=== PATIENT | female | born 1985 | race Hispanic/Latino ===

== ENCOUNTER 2021-02-18 06:45 | Inpatient (IN) | payer MEDICAID ==
[~2021-02-18] VITALS: Ht 170.2 cm; Wt 106.1 kg
[2021-02-18 06:49] VITALS: BP 116/67
[2021-02-18] MEDS ORDERED: EPHEDRINE SULFATE 50 MG/ML AMPULE IVP PRN (08:00)
[2021-02-18] MEDS ORDERED: MEPERIDINE-PF 50 MG/ML SYG IVP PRN (08:00)
[2021-02-18] MEDS ORDERED: OXYTOCIN-LR 20 UNITS/1000 ML 1,000 ML IV SCH (08:00)
[2021-02-18] MEDS ORDERED: LACTATED RINGERS 1000ML 1,000 ML IV PRN (08:00)
[2021-02-18] MEDS ORDERED: ROPIVACAINE 0.2% 100ML VIAL 100 ML EP SCH (08:00)
[2021-02-18] MEDS ORDERED: PROMETHAZINE HCL 25 MG/ML 1ML AMPULE IM PRN (08:00)
[2021-02-18] MEDS ORDERED: LACTATED RINGERS 500 ML 500 ML IV PRN (08:00)
[2021-02-18] MEDS ORDERED: NALOXONE HCL 0.4 MG/1 ML ML IV PRN (08:00)
[2021-02-18 08:05] LABS: HEMATOCRIT 30.7 % (36-48); MEAN CORPUSCULAR HEMOGLOBIN 28.4 pg (27.0-33.0); MEAN CORPUSCULAR HGB CONC 33.6 g/dL (32.0-36.0); MEAN CORPUSCULAR VOLUME 84.6 fL (79-99); RED BLOOD CELL COUNT(AUTO) 3.63 MIL/uL (4.00-5.50); RED CELL DISTRIBUTION WIDTH 14.3 % (11.0-15.5)
[2021-02-18 08:07] LABS: APPEARANCE,URINE Clear (CLEAR); BILIRUBIN,URINE Negative (NEGATIVE); COLOR,URINE Yellow (YELLOW); GLUCOSE, URINE (UA) Negative (NEGATIVE); KETONES,URINE Trace mg/dL (NEGATIVE); LEUKOCYTE ESTERASE ,URINE Small (NEGATIVE); NITRATE,URINE Negative (NEGATIVE); OCCULT BLOOD,URINE Negative (NEGATIVE); PROTEIN,URINE Negative (NEGATIVE)
[2021-02-18 08:14] LABS: BACTERIA,URINE Rare /HPF (None Seen); RBC,URINE 0-1 /HPF (0-1); SQUAMOUS EPITHELIAL CELL,UR Moderate /HPF (0-2)
[2021-02-18] MEDS ORDERED: FENTANYL CITRATE PF 50 MCG/1 ML 2ML VIAL ONE (10:49)
[2021-02-18] MEDS ORDERED: LANOLIN 30GM OINTMENT TP PRN (14:00)
[2021-02-18] MEDS ORDERED: ACETAMINOPHEN 325 MG TAB PO PRN (14:00)
[2021-02-18] MEDS ORDERED: DIPH,PERTUSS(ACELL),TET VAC/PF 0.5 ML VIAL IM PRN (14:00)
[2021-02-18] MEDS ORDERED: BENZOCAINE/LANOLIN/ALOE VERA 60 ML AEROSOL TP PRN (14:00)
[2021-02-18] MEDS ORDERED: WITCH HAZEL 1 PAD TP PRN (14:00)
[2021-02-18] MEDS ORDERED: ACETAMINOPHEN WITH CODEINE 1 TAB TAB PO PRN (14:00)
[2021-02-18 15:45] VITALS: BP 124/72
[2021-02-18] MEDS: IBUPROFEN 600 MG TABLET PO PRN (16:08)
[2021-02-18] MEDS ORDERED: PNV1TABL17 PO (18:11)
[2021-02-18 19:43] VITALS: BP 111/58
[2021-02-18] MEDS: DOCUSATE SODIUM 100 MG CAP PO SCH (21:12)
[2021-02-18 22:56] VITALS: BP 115/69
[2021-02-19] MEDS: IBUPROFEN 600 MG TABLET PO PRN ×2 (02:13→09:18)
[2021-02-19 02:51] VITALS: BP 106/62
[2021-02-19 07:48] VITALS: BP 106/65
[2021-02-19] MEDS: DOCUSATE SODIUM 100 MG CAP PO SCH (09:17)
[2021-02-19 17:09] LABS: HEPATITIS Bs ANTIGEN SCREEN P Negative (Negative)
== END 2021-02-19 15:55 | disposition home or self-care (01) | DRG 560 ==
LOC: EDH 06:45 → OBSVTOIN 06:46 → LDH 06:46 → WSH 15:44
PROVIDERS: ADMIT Specialist; ATTEND Specialist
PROC: 10E0XZZ Delivery of Products of Conception, External Approach (ICD-10-PCS; principal; 2021-02-18)
PROC: 0KQM0ZZ Repair Perineum Muscle, Open Approach (ICD-10-PCS; 2021-02-18)
PROC: 3E0R3BZ Introduction of Anesthetic Agent into Spinal Canal, Percutaneous Approach (ICD-10-PCS; 2021-02-18)
PROC: 00HU33Z Insertion of Infusion Device into Spinal Canal, Percutaneous Approach (ICD-10-PCS; 2021-02-18)
DX: O70.1 Second degree perineal laceration during delivery (principal); Z37.0 Single live birth; Z3A.38 38 weeks gestation of pregnancy
CPT/HCPCS: 36415; 81001; 85027; 86592; 86850; 86900; 86901; 87340; A4314; G0378; J2590; J2795; J3010

== ENCOUNTER 2022-05-23 07:19 | Inpatient (IN) | payer MEDICAID ==
[~2022-05-23] VITALS: Ht 170.2 cm; Wt 104.8 kg
[~2022-05-23 07:19] MED LIST: PNV1TABL17 PO
[2022-05-23 08:28] LABS: HEMATOCRIT 31.3 % (36-48); MEAN CORPUSCULAR HEMOGLOBIN 27.4 pg (27.0-33.0); MEAN CORPUSCULAR HGB CONC 33.5 g/dL (32.0-36.0); MEAN CORPUSCULAR VOLUME 81.7 fL (79-99); RED BLOOD CELL COUNT(AUTO) 3.83 MIL/uL (4.00-5.50); RED CELL DISTRIBUTION WIDTH 15.7 % (11.0-15.5); WHITE BLOOD COUNT (AUTO) 8.4 K/uL (4.8-10.8)
[2022-05-23] MEDS ORDERED: EPHEDRINE SULFATE 50 MG/ML AMPULE IVP PRN (08:30)
[2022-05-23] MEDS ORDERED: NALOXONE HCL 0.4 MG/1 ML ML IV PRN (08:30)
[2022-05-23] MEDS ORDERED: ROPIVACAINE 0.2% 100ML VIAL 100 ML EP SCH (08:30)
[2022-05-23] MEDS ORDERED: PROMETHAZINE HCL 25 MG/ML 1ML AMPULE IM PRN (08:30)
[2022-05-23] MEDS ORDERED: LACTATED RINGERS 500 ML 500 ML IV PRN (08:30)
[2022-05-23] MEDS: LACTATED RINGERS 1000ML 1,000 ML IV PRN ×2 (08:35→09:10)
[2022-05-23 08:36] VITALS: BP 132/73
[2022-05-23] MEDS ORDERED: FENTANYL CITRATE PF 50 MCG/1 ML 2ML VIAL ONE (08:51)
[2022-05-23 08:56] LABS: APPEARANCE,URINE CLOUDY (CLEAR); BILIRUBIN,URINE NEGATIVE (NEGATIVE); COLOR,URINE YELLOW (YELLOW); GLUCOSE, URINE (UA) NEGATIVE (NEGATIVE); KETONES,URINE NEGATIVE (NEGATIVE); LEUKOCYTE ESTERASE ,URINE 75 Leu/uL (NEGATIVE); NITRATE,URINE NEGATIVE (NEGATIVE); OCCULT BLOOD,URINE NEGATIVE (NEGATIVE); PH,URINE 6.5 (5.0-8.0); PROTEIN,URINE 30 mg/dL (NEGATIVE); UROBILINOGEN,URINE 0.2 mg/dL (0.2-1.0)
[2022-05-23 09:40] LABS: BACTERIA,URINE FEW /HPF (None Seen); MUCUS,URINE RARE LPF (None Seen); OTHER CASTS, URINE 1 /LPF (None Seen); SQUAMOUS EPITHELIAL CELL,UR MANY /HPF (0-2)
[2022-05-23] MEDS ORDERED: OXYTOCIN-LR 20 UNITS/1000 ML 1,000 ML IV SCH ×2 (11:30→13:30)
[2022-05-23] MEDS ORDERED: ACETAMINOPHEN WITH CODEINE 1 TAB TAB PO PRN (13:30)
[2022-05-23] MEDS ORDERED: LANOLIN 30GM OINTMENT TP PRN (13:30)
[2022-05-23] MEDS ORDERED: BENZOCAINE/LANOLIN/ALOE VERA 60 ML AEROSOL TP PRN (13:30)
[2022-05-23] MEDS ORDERED: WITCH HAZEL 1 PAD TP PRN (13:30)
[2022-05-23] MEDS ORDERED: MEASLES/MUMPS/RUBELLA VACCINE, LIVE 0.5 ML/VIAL SQ PRN (13:30)
[2022-05-23] MEDS ORDERED: DIPH,PERTUSS(ACELL),TET VAC/PF 0.5 ML VIAL IM PRN (13:30)
[2022-05-23] MEDS ORDERED: ACETAMINOPHEN 325 MG TAB PO PRN (13:30)
[2022-05-23] MEDS: OXYTOCIN-LR 20 UNITS/1000 ML 1,000 ML IV SCH (13:55)
[2022-05-23] MEDS: IBUPROFEN 600 MG TABLET PO PRN ×2 (15:04→21:03)
[2022-05-23 19:40] VITALS: BP 122/75
[2022-05-23] MEDS ORDERED: PNV1CAPS PO (20:26)
[2022-05-23] MEDS: DOCUSATE SODIUM 100 MG CAP PO SCH (20:35)
[2022-05-23 22:40] VITALS: BP 116/68
[2022-05-24 03:07] VITALS: BP 127/77
[2022-05-24] MEDS: IBUPROFEN 600 MG TABLET PO PRN ×3 (03:07→17:49)
[2022-05-24] MEDS: OXYTOCIN-LR 20 UNITS/1000 ML 1,000 ML IV SCH (05:33)
[2022-05-24 06:02] LABS: HEMATOCRIT 28.1 % (36-48); MEAN CORPUSCULAR HEMOGLOBIN 27.3 pg (27.0-33.0); MEAN CORPUSCULAR HGB CONC 32.7 g/dL (32.0-36.0); MEAN CORPUSCULAR VOLUME 83.4 fL (79-99); RED BLOOD CELL COUNT(AUTO) 3.37 MIL/uL (4.00-5.50)
[2022-05-24 07:45] VITALS: BP 130/83
[2022-05-24] MEDS: DOCUSATE SODIUM 100 MG CAP PO SCH (09:26)
[2022-05-24 11:19] LABS: RAPID PLASMA REAGIN NONREACTIVE (NONREACTIVE)
[2022-05-24 11:50] VITALS: BP 123/75
[2022-05-24] MEDS ORDERED: IBUP-2070 PO (14:17)
[2022-05-24 16:46] VITALS: BP 121/66
== END 2022-05-24 18:20 | disposition home or self-care (01) | DRG 560 ==
LOC: EDH 07:19 → LDH 07:20 → OBSVTOIN 07:20 → WSH 18:00
PROVIDERS: ADMIT Internal Medicine; ATTEND Internal Medicine
PROC: 10E0XZZ Delivery of Products of Conception, External Approach (ICD-10-PCS; principal; 2022-05-23)
PROC: 3E0R3BZ Introduction of Anesthetic Agent into Spinal Canal, Percutaneous Approach (ICD-10-PCS; 2022-05-23)
PROC: 00HU33Z Insertion of Infusion Device into Spinal Canal, Percutaneous Approach (ICD-10-PCS; 2022-05-23)
PROC: 10907ZC Drainage of Amniotic Fluid, Therapeutic from Products of Conception, Via Natural or Artificial Opening (ICD-10-PCS; 2022-05-23)
PROC: 0KQM0ZZ Repair Perineum Muscle, Open Approach (ICD-10-PCS; 2022-05-23)
DX: O99.02 Anemia complicating childbirth (principal); Z37.0 Single live birth; O70.1 Second degree perineal laceration during delivery; Z3A.38 38 weeks gestation of pregnancy
CPT/HCPCS: 36415; 81001; 85027; 86592; 86701; 86850; 86900; 86901; 87088; 87340; 87390; G0378; J2590; J2795; J3010; J7120